=== PATIENT | female | born 1995 | race Caucasian/White ===

== ENCOUNTER 2023-10-24 06:01 | Day surgery (SDC) | payer OTHER, SELFPAY ==
[2023-10-24] MEDS: LACTATED RINGERS 1000 ML 1,000 ML 100 ML IV (06:05)
[2023-10-24 06:26] VITALS: BMI 29.0
[2023-10-24 06:31] LABS: Ur HCG Qualitative* Negative (Negative)
[2023-10-24 06:32] VITALS: BP 155/111; PULSE 106; RESP 18; TEMP 36.6; O2SAT 96
[2023-10-24] MEDS: SODIUM CHLORIDE 0.9 % (FLUSH) 10 ML SYRINGE IVF (06:50)
[2023-10-24] MEDS: BUPIVACAINE 0.5% 30 ML INJECTION (07:30)
[2023-10-24] MEDS: phenoL 29.57 ML LIQUID 5 ML TOPICAL (07:32)
[2023-10-24 08:02] VITALS: BP 112/65; PULSE 121; RESP 20; TEMP 37.1; O2SAT 94
--- NOTE | 2023-10-24 08:07 | W.ANESCHARGE ---
Anesthesia Charges Start Date/Time Anesthesia Start Date: 10/24/23 Anesthesia Start Time: 07:16 Stop Date/Time Anesthesia Stop Date: 10/24/23 Anesthesia Stop Time: 08:01
[2023-10-24 08:15] VITALS: BP 136/104; PULSE 108; RESP 20; O2SAT 94
[2023-10-24 08:30] VITALS: BP 135/103; PULSE 111; RESP 20; O2SAT 94
[2023-10-24 08:45] VITALS: BP 135/102; PULSE 100; RESP 20; O2SAT 96
[2023-10-24 09:00] VITALS: BP 134/108; PULSE 102; RESP 20; TEMP 37.1; O2SAT 96
--- NOTE | 2023-10-24 14:20 | W.PODPROC_ITS ---
Date of Procedure: 10/24/23 Surgeon: Fortino Olivares DPM Pre-op Diagnosis: Severe ingrown toenail left great toe Post-op Diagnosis: Severe ingrown toenail left great toe Type of Procedure: Permanent total matrixectomy left great toe Indications: Patient has had severe ingrowing toenail left great toe for over a year with significant proud flesh development. He is in need of permanent removal. I reviewed the procedure, recovery, expectation potential complications. We discussed possible recurrence proximally 7%. Written consent was obtained. Site was. Procedure Description: Patient brought the operating room placed supine position on operating table. IV sedation was initiated and local anesthetic was injected into the left great toe. Standard time-out protocol was followed. While sedated I did trim as her other 9 toenails as they were quite severely long. A [place] drain was applied to the left great toe. [place] elevator was used to separate the am plate from the nail bed and surrounding tissues. Toenail was removed in total with a hemostat. The excessive proud flesh was excised with a scalpel and the base cauterized. Four sticks of phenol were utilized and applied to the nail matrix for 30 seconds each. The area was thoroughly irrigated normal sterile saline. [place] drain was removed and no active bleeding noted. Silvadene cream applied to the wound and covered with Adaptic and light dressing. She was transferred from OR to PACU vital signs stable and vascular status intact to the left great toe. She will be discharged per Anesthesia. She will start soaking tonight. Written and verbal post procedure instructions given Anesthesia: MAC and local Hemostasis: other Estimated blood loss (mL): 1 Specimens: none sent Disposition: same day
== END 2023-10-24 09:35 | disposition home or self-care (01) ==
LOC: OR 06:06
PROVIDERS: Nurse Anesthetist, Certified Registered; PCP Family Medicine; Visit Provider Podiatrist
PROC: 0HTRXZZ Resection of Toe Nail, External Approach (ICD-10-PCS; CPT 11730; principal; 2023-10-24 07:30)
DX: L60.0 Ingrowing nail (principal)
CPT/HCPCS: 11750; 01462; 81025; A9270; J0665; J1100; J2250; J2371; J2405; J2704; J3010; J7120